=== PATIENT | male | born 1960 | race Caucasian/White ===

== ENCOUNTER 2021-01-29 10:02 | Emergency (ER) | payer OTHER, SELFPAY ==
--- NOTE | 2021-01-29 10:03 | ED.URI ---
HPI - URI/Sore Throat General Chief Complaint: Headache Stated Complaint: purvis/drainage/sore throat/cough Time Seen by Provider: 01/29/21 10:04 Source: patient and RN notes reviewed History of Present Illness HPI Narrative: Patient is 60-year-old male who presents the urgent care with complaints of headache, drainage, mild nonproductive cough and sore throat. Patient states that he has been taking Advil and Zyrtec for his symptoms. States that they started on Friday. Patient reports having Covid 1 a year ago on February 10 and is also had the Materna vaccine. Patient tested negative for Covid at work this morning. Denies of any fever, chills, nausea, vomiting, shortness of breath. No other acute complaints. No acute distress noted. Patient aware of the plan of care. Some parts of this dictation were generated by voice recognition software and may contain typographical and/or grammatical inaccuracies. Related Data Home Medications Medication Instructions Recorded Confirmed amlodipine-benazepril 1 cap PO DAILY 01/29/21 01/29/21 Allergies Allergy/AdvReac Type Severity Reaction Status Date / Time No Known Allergies Allergy Verified 01/29/21 10:15 Review of Systems Review of Systems: CONSTITUTIONAL: Denies fever, chills, or sweats. EYES: Denies visual changes, redness, or discharge. ENT: Reports of sinus congestion, drainage, sore throat CARDIOVASCULAR: Denies chest pain, palpitations, or edema. RESPIRATORY: Reports a mild nonproductive cough without dyspnea GASTROINTESTINAL: Denies abdominal pain, nausea, vomiting, or diarrhea. GENITOURINARY: Denies dysuria or hematuria. SKIN: Denies rash or itching. MUSCULOSKELETAL: Denies back pain, joint pain, or myalgia. NEUROLOGIC: Reports of headache All other systems reviewed are negative, except as documented in HPI. PMFSH Comments At the time of my signature, I reviewed and agree with the nursing past medical, surgical, social, and family history. There is no relevant family history pertinent to the patient complaint. Exam Narrative: GENERAL: This is a well-nourished, well-developed patient, in no apparent distress. HEAD: normocephalic, atraumatic. EYES: PERRL. Sclera clear/white. Vision is grossly intact. EARS: External ears normal, auditory canals clear and without drainage, TMs normal without perforation. Hearing grossly intact. NOSE: External nose normal with no obvious nasal discharge, nares without redness, clear rhinorrhea. THROAT: Mucous membranes moist, moderate erythema noted posterior pharynx with moderate postnasal drainage NECK: Neck supple, non-tender mild bilateral submandibular lymphadenopathy CARDIOVASCULAR: Regular rate and rhythm without murmurs, gallops, or rubs. RESPIRATORY: Clear to auscultation. Breath sounds equal bilaterally. No wheezes, rales, or rhonchi. SKIN: warm, intact with no suspicious lesions or rash, good texture and turgor. NEURO: awake, alert, and oriented to person, place and time. There were no obvious focal neurologic abnormalities. EXTREMITIES: No clubbing, cyanosis, or edema. Course Vital Signs Vital signs: Vital Signs Temperature 98.3 F 01/29/21 10:10 Pulse Rate 115 H 01/29/21 10:10 Respiratory Rate 20 01/29/21 10:10 Blood Pressure 175/92 H 01/29/21 10:10 Pulse Oximetry 98 01/29/21 10:10 Temperature 98.3 F 01/29/21 10:10 Pulse Rate 115 H 01/29/21 10:10 Respiratory Rate 20 01/29/21 10:10 Blood Pressure 175/92 H 01/29/21 10:10 Pulse Oximetry 98 01/29/21 10:10 Reviewed-patient is informed that they may have pre-hypertension or hypertension based on a blood pressure reading in the department. I recommend the patient call the primary care provider listed on their discharge instructions or a physician of their choice this week to arrange follow-up for further evaluation of possible pre-hypertension or hypertension. MDM - URI/Sore Throat MDM Narrative Medical decision making narrative: Reviewed lab
[2021-01-29 10:10] VITALS: BP 175/92; PULSE 115; RESP 20; TEMP 36.8; O2SAT 98
== END 2021-01-29 10:28 | disposition home or self-care (01) ==
PROVIDERS: Emergency Provider Nurse Practitioner Family
DX: J32.9 Chronic sinusitis, unspecified (principal); J02.9 Acute pharyngitis, unspecified; I10 Essential (primary) hypertension; Z86.16 Personal history of COVID-19
CPT/HCPCS: 87081; 87880; 99213; G0463

== ENCOUNTER 2021-02-05 11:04 | Emergency (ER) | payer OTHER, SELFPAY ==
[2021-02-05 11:40] VITALS: BP 167/87; PULSE 73; RESP 16; TEMP 36.5; O2SAT 98
--- NOTE | 2021-02-05 12:21 | ED.URI ---
HPI - URI/Sore Throat General Chief Complaint: Upper Respiratory Infection Stated Complaint: Sore Throat,Chest Congestion,Headache Time Seen by Provider: 02/05/21 12:21 Source: patient Mode of arrival: ambulatory Limitations: no limitations History of Present Illness HPI Narrative: Terry Mg is a 60 yo male with a PMH of hypertension who comes to [facility] with complaints of sore throat, chest congestion and headache. Was here last week with similar symptoms and had strep negative test and was given a Medrol Dosepak, his test earlier this week for Covid which is negative Related Data Home Medications Medication Instructions Recorded Confirmed amlodipine-benazepril 1 cap PO DAILY 01/29/21 01/29/21 Zyrtec 02/05/21 Allergies Allergy/AdvReac Type Severity Reaction Status Date / Time No Known Allergies Allergy Verified 01/29/21 10:15 Review of Systems Review of Systems: CONSTITUTIONAL: Denies fever, chills, sweats. EYES: Denies visual changes, redness, discharge. ENT: Has rhinorrhea, has congestion, has sore throat, otalgia. CARDIOVASCULAR: Denies chest pain, palpitations, edema. RESPIRATORY: Denies dyspnea, wheezing, has cough GASTROINTESTINAL: Denies abdominal pain, nausea, vomiting, diarrhea. GENITOURINARY: Denies dysuria, hematuria, abnormal discharge SKIN: Denies rash or itching. NEUROLOGIC: Denies numbness, or focal weakness. PSYCHIATRIC: Denies anxiety or depression. PMFSH Past Medical History Medical History Hypertension Social History Social History (Updated 02/05/21 @ 12:29 by Georgiana Rockwell CNP) Smoking status: Never smoker Alcohol intake: current Comments At time of signature, I agree with nursing past medical, surgical, social and family history. There is no relevant family history pertinent to the presenting complaint. Exam Narrative: GENERAL: This is a well-nourished, well-developed patient, in mild distress. HEAD: normocephalic, atraumatic. EYES: Sclera clear/white. Vision is grossly intact. EARS: External ears normal, auditory canals clear and without drainage, TMs normal without perforation. Hearing grossly intact. NOSE: External nose normal without nasal discharge, nares without redness, no rhinorrhea. THROAT: Mucous membranes moist, posterior pharynx erythema with mild 1+ edema NECK: Neck supple, non-tender CARDIOVASCULAR: Regular rate and rhythm without murmurs, gallops, or rubs. RESPIRATORY: Clear to auscultation. Breath sounds equal bilaterally. No wheezes, rales, or rhonchi. GASTROINTESTINAL: Abdomen soft, SKIN: warm, intact with no suspicious lesions or rash, good texture and turgor. NEURO: awake, alert, and oriented to person, place and time. There were no obvious focal neurologic abnormalities. Steady gait EXTREMITIES: Normal range of motion. BACK: Nontender without deformity Course Course Emergency Course: [facility] now with 9 days of symptoms that have not improved he was seen here a week ago for sore throat and congestion and was had a negative strep test was also Covid tested last week which is also negative patient has had a full vaccination plus booster for Covid Started on antibiotic, Tessalon Perles, prednisone x5 days with higher doses, and backup of codeine cough syrup for bronchospasm Vital Signs Vital signs: Vital Signs Temperature 97.7 F 02/05/21 11:40 Pulse Rate 73 02/05/21 11:40 Respiratory Rate 16 02/05/21 11:40 Blood Pressure 167/87 H 02/05/21 11:40 Pulse Oximetry 98 02/05/21 11:40 Temperature 97.7 F 02/05/21 11:40 Pulse Rate 73 02/05/21 11:40 Respiratory Rate 16 02/05/21 11:40 Blood Pressure 167/87 H 02/05/21 11:40 Pulse Oximetry 98 02/05/21 11:40 MDM - URI/Sore Throat Differential Diagnosis Differential diagnosis: Likely upper respiratory infection, sinusitis, viral infection, bronchitis, pharyngitis and other Critica
== END 2021-02-05 12:43 | disposition home or self-care (01) ==
PROVIDERS: Emergency Provider Nurse Practitioner
DX: J40 Bronchitis, not specified as acute or chronic (principal); I10 Essential (primary) hypertension
CPT/HCPCS: 99213; G0463

== ENCOUNTER 2022-10-15 18:38 | Observation (INO) | payer OTHER, SELFPAY ==
[2022-10-15] VITALS (7 sets, daily range): BP systolic 120–164; BP diastolic 69–77; PULSE 67–95; RESP 12–26; TEMP 37; O2SAT 96–99
--- NOTE | ~2022-10-15 | US_ITS ---
EXAMINATION: US abdomen limited DATE: 10/17/2022 08:40 INDICATION: Abnormal liver function tests. TECHNIQUE: Multiple grayscale and Doppler ultrasound images of the abdomen were obtained. COMPARISON: None FINDINGS: The visualized portions of the head and body of the pancreas are normal. There is diffuse h epatic steatosis. No liver surface nodularity. There is normal flow in main portal vein. The gallblad layla is normal in size. No gallstones or gallbladder wall thickening. There is no sonographic Somers s ign. The common duct is normal and measures 5 mm. IMPRESSION: 1. Diffuse hepatic steatosis. Reviewed, dictated and finalized at location L.
--- NOTE | ~2022-10-15 | XR_ITS ---
EXAMINATION: XR chest 2V Exam Date/Time: 10/15/2022 21:32 CDT HISTORY: chest pressure, elevated trop Comparison: 05/23/2018. RESULT: Lines, tubes, and devices: None. Lungs and pleura: Low volumes with crowding. Bibasilar scar/atelectasis. Cardiomediastinal silhouette: Stable. Other: No acute osseous or upper abdominal finding. IMPRESSION: No acute cardiopulmonary process. Reviewed, dictated and finalized at location K.
--- NOTE | ~2022-10-15 | CT_ITS ---
EXAMINATION: CT brain wo con DATE: 10/15/2022 19:08 INDICATION: HI, lac to L ear, R periorbital bruising, +ETOH . TECHNIQUE: Computed tomography (CT) of the head was performed without intravenous contrast. The mA wa s adjusted according to patient size. Iterative reconstruction technique was employed. The dose-lengt h product was 605.33 mGy-cm. COMPARISON: None. FINDINGS: No acute intracranial hemorrhage or extra-axial fluid collection. No hydrocephalus, mass, or herniation. No acute ischemic infarct. Unremarkable dural venous sinus attenuation. No acute osseous abnormality. The aerated spaces are clear. IMPRESSION: No acute intracranial process. Reviewed, dictated and finalized at location K.
--- NOTE | ~2022-10-15 | CT_ITS ---
EXAMINATION: CT cervical spine wo con DATE: 10/15/2022 19:14 INDICATION: fall, HI, +ETOH TECHNIQUE: Computed tomography (CT) of the cervical spine was performed without intravenous contrast. Automated exposure control and iterative reconstruction technique were employed. The dose-length pro duct was 325.48 mGy-cm. COMPARISON: None. FINDINGS: Vertebral Body Alignment: Intact. Craniocervical and atlantoaxial alignment: Moderate degenerative change. Alignment intact. Osseous structures/fracture: No evidence of a lytic or blastic process in the visualized spine. No e vidence of acute fracture. Cervical soft tissues: The paraspinal soft tissues planes are maintained. Emphysematous changes. Degenerative changes: Degenerative changes, without severe neural foraminal or central canal narrowin g. IMPRESSION: No acute fracture or traumatic malalignment in the cervical spine. Reviewed, dictated and finalized at location K.
--- NOTE | 2022-10-15 18:44 | ED.FALL ---
HPI - Fall General Chief Complaint: Fall Stated Complaint: fall Source: patient and old records reviewed Mode of arrival: EMS Limitations: clinical condition and intoxication History of Present Illness HPI Narrative: Patient is a 62 y/o male who presents to the ED via EMS with c/o a fall. Per EMS, they were called out for a fall with head injury. Patient reports he has been drinking alcohol today, vodka and beer, and fell, hitting his head against his nightstand. He sustained a laceration to his left ear. He was also noted to have periorbital ecchymosis on his right upper eyelid. Patient does not member the fall or know how it occurred. Unknown if he lost consciousness. He denies any other areas of pain. Denies vision changes. Patient takes aspirin 81 mg daily. Denies other blood thinners. Related Data Home Medications Medication Instructions Recorded Confirmed amlodipine 10 mg-benazepril 20 mg 1 cap PO DAILY 01/29/21 01/29/21 capsule Zyrtec 02/05/21 Allergies Allergy/AdvReac Type Severity Reaction Status Date / Time No Known Allergies Allergy Verified 10/15/22 18:56 Review of Systems Review of Systems: CONSTITUTIONAL: Denies fever, chills, or sweats. EYES: Denies visual changes, redness, or discharge. CARDIOVASCULAR: Denies chest pain, palpitations, or edema. RESPIRATORY: Denies cough or dyspnea. GASTROINTESTINAL: Denies abdominal pain, nausea, vomiting, or diarrhea. GENITOURINARY: Denies dysuria or hematuria. SKIN: See HPI. MUSCULOSKELETAL: Denies back pain, joint pain, or myalgia. NEUROLOGIC: See HPI. ROS unobtainable: Yes unobtainable due to medical condition (limited due to intoxication) [facility] Past Medical History Medical History (Updated 10/16/22 @ 00:13 by Karie Cross PA-C) Alcohol abuse Hypertension Social History Social History Smoking status: Never smoker Alcohol intake: current Exam Narrative: GENERAL: Intoxicated appearing, obese with BMI of 31.9, non-toxic, in no acute distress. HEAD: Normocephalic, atraumatic. EYES: PERRLA/EOMI, conjunctiva clear. Ecchymosis and swelling noted to left upper eyelid. ENT: Vertical linear laceration flap to left upper helix of outer ear, cartilage visible below flap, but wound approximates well and covers the cartilage completely. Minimal active bleeding. TMs clear bilaterally. No TM perforation, hemotympanum. No espinoza sign. NECK: Supple. No adenopathy, no masses. No midline spinal tenderness. RESPIRATORY: Airway patent, respirations nonlabored. Clear to auscultation bilaterally, no rales, rhonchi, wheezing. CARDIOVASCULAR: Regular rate and rhythm without murmurs, rubs, or gallops. Radial pulses 2+ and equal bilaterally. MUSCULOSKELETAL: Moves all extremities. Strength/ROM intact without gross deformities. SKIN: Warm, dry, normal color. No rashes. Scattered abrasions to lower legs. Scattered nontender ecchymosis to abdomen. NEURO: A&O X3. Able to answer all my questions. Follows most commands. Speech somewhat slurred. Cranial nerves II-XII grossly intact. No ataxic movements. Moves all extremities equally. No focal neurologic deficits. PSYCHIATRIC: Appropriate mood and affect. Normal interaction. Course Vital Signs Vital signs: Vital Signs Temperature 98.6 F 10/15/22 18:37 Pulse Rate 95 10/15/22 18:37 Respiratory Rate 14 10/15/22 18:37 Blood Pressure 164/69 H 10/15/22 18:37 Pulse Oximetry 98 10/15/22 18:37 Oxygen Delivery Room Air 10/15/22 18:37 Temperature 98.6 F 10/15/22 18:37 Pulse Rate 67 10/15/22 23:35 Respiratory Rate 14 10/15/22 23:35 Blood Pressure 120/77 10/15/22 23:19 Pulse Oximetry 98 10/15/22 23:35 Oxygen Delivery Room Air 10/15/22 18:37 Procedures Laceration Laceration 1: Date: 10/15/22 Time: 20:40 Site: other (ear) Side (If applicable): left Size (cm): 2
[2022-10-15 18:55] LABS: Basophils Percent Auto 0.7 % (0.2-1.2); Eosinophils Percent Auto 0.2 % (0-4.4); Hemoglobin 13.9 g/dL (14.0-18.0); Immature Granulocyte Absolute 0.02 K/mm3 (0.00-0.031); Immature Granulocyte Percent A 0.3 % (0-0.5); Lymphocytes Absolute Auto 2.19 K/mm3 (0.9-3.2); Lymphocytes Percent Auto 36.1 % (18.3-44.2); Mean Corpuscular HGB Conc 33.9 g/dl (32-36); Mean Corpuscular Hemoglobin 33.3 pg (26-34); Mean Corpuscular Volume 98.3 fl (80-100); Mean Platelet Volume 9.2 fl (7.4-10.4); Monocytes Absolute Auto 0.7 K/mm3 (0.1-0.6); Monocytes Percent Auto 11.5 % (2.6-8.5); Neutrophils Absolute Auto 3.1 K/mm3 (1.3-6.7); Neutrophils Percent Auto 51.2 % (45.5-73.1); Platelet Count Result 135 k/mm3 (150-375); Red Blood Count 4.17 M/mm3 (4.6-6.20); Red Cell Distribution Width 14.6 % (11.5-14.5); White Blood Count 6.1 K/mm3 (4.5-10.0)
--- NOTE | 2022-10-15 19:05 | PC.NURSE ---
This RN assumed care of patient. this RN took patient report from JOCELYNE Allison and JOCELYNE Luo.
[2022-10-15 19:07] LABS: Alanine Aminotransferase 83 U/L (6-50); Albumin Level 4.4 g/dL (3.5-5.1); Alkaline Phosphatase 62 U/L (38-126); Anion Gap 13 mmol/L (8-16); Aspartate Amino Transferase 109 U/L (17-59); Bilirubin,Total 0.5 mg/dL (0.2-1.3); Blood Urea Nitrogen 16 mg/dL (9-20); Calcium 8.6 mg/dL (8.4-10.2); Carbon Dioxide 22 mmol/L (22-30); Chloride 105 mmol/L (98-107); Estimated CRCL calculation 78 ml/min; Estimated Glomerular Filt Rate > 60; Glucose 92 mg/dL (65-110); Potassium 4.1 mmol/L (3.4-5.0); Sodium 140 mmol/L (137-145)
[2022-10-15 19:16] LABS: Ethanol 470 mg/dL (<10)
[2022-10-15 19:51] LABS: Amphetamine Screen Urine Negative (Negative); Barbiturate Screen Urine Negative (Negative); Benzodiazepines Screen Urine Negative (Negative); Cannabinoid Screen Urine Negative (Negative); Cocaine Screen Urine Negative (Negative); Methadone Screen Urine Negative (Negative); Opiate Screen Urine Negative (Negative); Phencyclidine Screen Urine Negative (Negative)
[2022-10-15 19:53] LABS: Appearance Urine Clear (Clear); Bilirubin Urine Negative (Negative); Blood Urine Negative (Negative); Color Urine Yellow (Yellow); Glucose Urine UA Negative (Negative); Ketones Urine Negative (Negative); Leukocyte Esterase Ur Negative LEU/UL (Negative); Nitrate Urine Negative (Negative); Protein Urine Negative (Negative); Specific Grav Ur 1.007 (1.001-1.035); Urobilinogen Urine 0.2 mg/dL (<2.0); pH Urine 5.5 (5.0-9.0)
[2022-10-15 19:56] LABS: Add Urine Microscopic? NO
--- NOTE | 2022-10-15 20:24 | ECG_ITS ---
Measurements Intervals [place] Rate: 62 P: NC: 0 QRS: 7 QRSD: 96 T: 59 QT: 438 QTc: 446 Interpretive Statements SINUS RHYTHM MODERATE T-WAVE ABNORMALITY, CONSIDER ANTERIOR ISCHEMIA [-0.1+ mV T WAVE IN V3/V4] ABNORMAL ECG COMPARED TO ECG 05/23/2018 12:45:54 NO SIGNIFICANT CHANGES Electronically Signed On 10-16-2022 7:46:31 CDT by Daquan Drummond M.D.
--- NOTE | 2022-10-15 20:55 | PC.NURSE ---
EKG delayed due to EDP Karie preforming laceration repair.
[2022-10-15 21:03] LABS: Troponin I 0.042 ng/mL (0.000-0.034)
[2022-10-15] MEDS: ASPIRIN 81 MG CHEWABLE TABLET 324 MG PO (21:22)
--- NOTE | 2022-10-15 21:23 | PC.NURSE ---
EDP Karie verbal order back to give pt 243mg of aspirin due to pt taking 1 aspirin prior to arrival at the ED.
--- NOTE | 2022-10-15 22:10 | PC.NURSE ---
Called [facility] @[id number] to check bed availability status. No beds available at this time.
[2022-10-15 22:29] LABS: Troponin I 0.052 ng/mL (0.000-0.034)
[2022-10-15] MEDS: LORazepam INJ (*CRX) 2 MG/ML VIAL 0.5 MG IV PUSH (23:35)
--- NOTE | 2022-10-15 23:46 | PM.IMHP ---
H&P: HPI History of Present Illness Date/Time: 10/15/22 23:46 Chief Complaint: Fall Narrative: 62-year-old male with past medical history of chronic alcohol abuse and essential hypertension who presented to the ER after having a fall while intoxicated. The patient reports that his family is out of town in [place]. He chose not to go out of town with them as he wanted to stay in town for work. While his family was out of town he has been drinking more alcohol than usual. Although it does sound like he has had a history of longstanding alcoholism and alcohol abuse. He drinks a pt of vodka yesterday. He then went to get up at some point and fell. The exact details surrounding the fall are unclear. The patient tells me that he got up to go to the kitchen and passed out and did not answer his phone so his called EMS. However EMS found patient in his bedroom by his night stand any had blood on his person. He tried to refuse transport to the ER but EMS would not allow it. The patient was found to have a laceration to his left ear and ecchymosis around his right eye. His alcohol level in the ER was 470. Given that they did not know the circumstances surrounding his fall ER but did obtain a troponin. The patient's troponin came back elevated. On further questioning the patient did admit that he has been having some chest tightness. He reports that this past week while at work he was in a meeting and became acutely diaphoretic and tremulous and felt as if his heart was racing. He attributed this to the recent increase in his sertraline. He states that when he was on the 50 mg of sertraline he was okay. However when the dose was increased to 100 mg he felt as if his heart was beating irregularly. He reports also reported that he just felt off. He does report that he has been dizzy for the last 1 day but he attributed that to drinking too much alcohol. He states that he was started on sertraline to help him get off the alcohol. However he also does admit to being significantly depressed. He reports that when he is at work he has writing a high all the time. But when he goes home he is flat in has no interest in life. He denies any suicidal ideation or intent to hurt himself. Patient's initial EKG in the ER demonstrated T-wave inversions in V1 through V4. He denied any chest pain in the ER but at the time of my evaluation he reported that he was having a recurrence of his chest tightness. He denies any radiation of his chest pain. His his pain was relieved with nitro in IMU. He admits that he has been having intermittent episodes of the chest tightness at least once a day for the last week or so. The pain usually last about 10 minutes and then resolves. He has not noticed any eliciting or relieving factors. However he has had more episodes of the chest tightness over the last 24 hours. He has been having issues with drinking heavily and binge drinking for many years. He quit smoking 18 years ago. He denies any illicit substance use. Patient denies any symptoms of heartburn. He has been having some episodes of palpitations and heart racing with antidepressants. He reports he had his last stress test many years ago and his stress test was negative. He receives all of his care at the [facility] but they did not have any beds and has subsequently been admitted here for observation. Review of Systems Review of Systems: 12 systems were reviewed with pertinent positives and negatives per HPI. Except as documented in the HPI, all other systems were reviewed and are negative. [facility] Past Medical History Medical History (Updated 10/16/22 @ 06:31 by Zara Buitrago DO) Alcohol abuse Allergic rhinitis Depression Hypertension Surgical History Surgical History (Updated 10/16/22 @ 06:10 by Zara Buitrago DO) History of repair of ACL Right History of toe surgery Joint removal from the left great toe Family History Famil
[2022-10-16] VITALS (11 sets, daily range): BP systolic 133–150; BP diastolic 73–91; PULSE 71–137; RESP 18–20; TEMP 36.4–37.3; O2SAT 94–99; BMI 29.9
--- NOTE | 2022-10-16 00:15 | ADMGEN ---
This patient, Terry Mg, was admitted to IMU Room 204-01. Patient/family oriented to hospital policies and general routines including ID bracelet, bed and alarms, visiting hours, pain management, procedures, bathroom and other care routines, personal items, smoking policy, room service/diet, and visiting hours. Information on how to activate the Rapid Response Team has been discussed. Patient/Family are encouraged to report perceived risks to care and to ask questions if they do not understand what they are told or what they should do.
[2022-10-16] MEDS: NITROGLYCERIN SL 0.4 MG TABLET SUBLINGUAL (00:43)
--- NOTE | 2022-10-16 00:52 | ECG_ITS ---
Measurements Intervals [place] Rate: 71 P: 41 NE: 151 QRS: -5 QRSD: 100 T: 10 QT: 434 QTc: 474 Interpretive Statements SINUS RHYTHM CONSIDER PREVIOUS iNFERIOR MYOCARDIAL INFARCTION MODERATE T-WAVE ABNORMALITY, CONSIDER ANTEROLATERAL ISCHEMIA [-0.1+ mV T WAVE IN V3-V6] ABNORMAL ECG WARNING: DATA QUALITY MAY AFFECT INTERPRETATION COMPARED TO ECG 10/15/2022 21:07:00 NO SIGNIFICANT CHANGE, SLIGHTLY DIFFERENT LEAD POSITION AVF Electronically Signed On 10-16-2022 7:50:14 CDT by Daquan Drummond M.D.
[2022-10-16 01:03] LABS: Troponin I 0.061 ng/mL (0.000-0.034)
[2022-10-16 06:50] LABS: Hematocrit 38.5 % (42.0-52.0); Hemoglobin 13.3 g/dL (14.0-18.0); Mean Corpuscular HGB Conc 34.5 g/dl (32-36); Mean Corpuscular Hemoglobin 33.7 pg (26-34); Mean Corpuscular Volume 97.5 fl (80-100); Mean Platelet Volume 9.3 fl (7.4-10.4); Platelet Count Result 117 k/mm3 (150-375); Red Blood Count 3.95 M/mm3 (4.6-6.20); Red Cell Distribution Width 14.4 % (11.5-14.5); White Blood Count 4.3 K/mm3 (4.5-10.0)
[2022-10-16 07:01] LABS: Ethanol 164 mg/dL (<10)
[2022-10-16 07:11] LABS: LDL Cholesterol Direct 95 mg/dL
[2022-10-16 07:14] LABS: Alanine Aminotransferase 75 U/L (6-50); Alkaline Phosphatase 55 U/L (38-126); Anion Gap 8 mmol/L (8-16); Aspartate Amino Transferase 83 U/L (17-59); Bilirubin,Total 0.7 mg/dL (0.2-1.3); Blood Urea Nitrogen 13 mg/dL (9-20); Calcium 8.4 mg/dL (8.4-10.2); Carbon Dioxide 23 mmol/L (22-30); Chloride 107 mmol/L (98-107); Cholesterol 256 mg/dL (0-200); Estimated CRCL calculation 91 ml/min; Estimated Glomerular Filt Rate > 60; Glucose 85 mg/dL (65-110); Magnesium 1.9 mg/dL (1.6-2.3); Phosphorus 2.8 mg/dL (2.5-4.5); Potassium 4.1 mmol/L (3.4-5.0); Sodium 138 mmol/L (137-145); Triglycerides 63 mg/dL (<150)
[2022-10-16 07:15] LABS: Troponin I 0.059 ng/mL (0.000-0.034)
[2022-10-16 07:50] LABS: Hepatitis B Surface Antigen Negative (Negative)
[2022-10-16 07:56] LABS: HAV RESULT Negative (Negative); Hepatitis B Core IgM Result Negative (Negative)
[2022-10-16 08:07] LABS: Hepatitis C Virus Antibody Negative (Negative)
[2022-10-16 08:33] LABS: HDL Direct 132 mg/dL
--- NOTE | 2022-10-16 09:54 | PM.CNCAR ---
Assessment and Plan Assessment and plan (1) Elevated troponin: Code(s): R77.8 - Other specified abnormalities of plasma proteins Status: Acute (2) Alcohol abuse with intoxication: Code(s): F10.129 - Alcohol abuse with intoxication, unspecified Status: Acute Plan This is a 62-year-old man with an unfortunate history of chronic alcohol abuse who came into the hospital after falling in the state of severe intoxication sustaining the injuries that are described in the admitting note. For reasons that are not clear to me troponin levels were done are slightly elevated and he also has some precordial T-wave abnormalities on his ECG. His electrocardiogram is not changed in comparison to previous tracings in the chart in his troponin levels are not consistent with an acute coronary syndrome. At this point I do not believe further cardiac workup is necessary or indicated at this time. He will continue to follow up after discharge with his physicians at the [facility]. We have any questions regarding this opinion please let me know. Daquan Drummond MD [facility] History of Present Illness History of Present Illness Consult date/time: 10/16/22 09:54 Reason For Visit: ETOH Abuse/Intoxication/GLF/Head Injury/Positive T Narrative: This is a 62-year-old man I am seeing today at the request of the hospitalist because of chest pain and modestly elevated troponin. Patient is unknown to me prior to this consultation. He read generally [facility] and was admitted yesterday evening to this hospital after falling in the state of his alcohol intoxication and incurring some head trauma he has a laceration about his left ear and some periorbital contusion and was seen in the emergency room and then admitted to the hospital. The patient had a very high alcohol level of 470 on arrival to the hospital. His electrocardiogram shows sinus rhythm with nonspecific precordial T-wave inversions which are not changed in comparison to previous tracings that are in the record. For reasons that are not clear to me troponin levels were also sampled and were modestly abnormal. The levels are 005 and flat. He states he is not known to have any heart disease in the past has been referred to a server security administrator a couple of times at [facility] because of abnormalities on his ECG he describes having had an echocardiogram there within the last year and couple of stress tests in the past that were unremarkable. He is not having any exertional symptoms when he is not intoxicated and offers no other complaints. Unfortunately he has a long history of alcohol abuse which T states started when he was in the [place] as a teenager. He drinks beer and vodka to excess. 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 Review of Systems Constitutional: Constitutional: Reports no additional constitutional complaints Eyes: Eyes: Reports no additional eye complaints ENT: Reports system reviewed and no additional complaints, except as documented Cardiovascular: Cardiovascular: Reports as per HPI Respiratory: Respiratory: Reports no additional respiratory complaints Gastrointestinal: Gastrointestinal: Reports no additional gastrointestinal complaints Musculoskeletal: Musculoskeletal: Reports no additional musculoskeletal complaints Integumentary/Breasts: Skin/Breast: Reports system reviewed and no additional complaints, except as docu Neurologic: Reports as per HPI Endocrine: Endocrine: Reports no additional endocrine complaints Hematologic/Lymphatic: Hematologic/Lymphatic: Reports no additional hematologic/lymphatic complaints Allergic/Immunologic: Allergic/Immunologic: Reports no additional allergic/immunologic complaints [facility] Past Medical History Medical History (Updated 10/16/22 @ 06:31 by Zara Buitrago DO) Alcohol abuse Allergic rhinitis Depression Hypert
[2022-10-16] MEDS: amLODIPine BESYLATE 5 MG TABLET 10 MG PO (09:59)
[2022-10-16] MEDS: ASPIRIN 81 MG CHEWABLE TABLET PO (09:59)
[2022-10-16] MEDS: lisinopriL 20 MG TABLET PO (10:00)
[2022-10-16] MEDS: LORATADINE 10 MG TABLET PO (10:01)
--- NOTE | 2022-10-16 15:37 | PM.IMPN ---
Progress Note: A&P Assessment and Plan (1) Alcohol abuse with intoxication: Code(s): F10.129 - Alcohol abuse with intoxication, unspecified Status: Acute Assessment and Plan: The patient is acutely intoxicated with alcohol. It sounds as if he has history of episodes of binge drinking and alcohol abuse for many years. He has been trying to cut back. He does have a tremor at rest which is chronic for him. Will check B12 and folic acid levels. Will also check magnesium and phosphorus levels. Will monitor CIWA scores and will add Ativan as needed for CIWA score greater than 8. Repeat alcohol was 164. Care coordination consulted for alcohol abuse and counseling resources. Patient feeling down about his situation but denies any suicidal homicidal ideations (2) Elevated troponin: Code(s): R77.8 - Other specified abnormalities of plasma proteins Status: Acute Assessment and Plan: troponin slightly elevated but remained flat and now trending down. Cardiology cleared patient. (3) Chest pressure: Code(s): R07.89 - Other chest pain Status: Resolved Assessment and Plan: Resolved (4) Ground-level fall: Code(s): W18.30XA - Fall on same level, unspecified, initial encounter Status: Acute Assessment and Plan: Patient has been placed on fall precautions. (5) Laceration of ear, external, left: Qualifiers: Encounter type: initial encounter Qualified Code(s): S01.312A - Laceration without foreign body of left ear, initial encounter Code(s): S01.312A - Laceration without foreign body of left ear, initial encounter Status: Acute Assessment and Plan: The patient has laceration repair in the ER. Adequate hemostasis. Continue to monitor. (6) Transaminitis: Code(s): R74.01 - Elevation of levels of liver transaminase levels Status: Acute Assessment and Plan: Patient does have transaminitis likely secondary to heavy alcohol use. hepatitis panel negative. (7) Depression: Qualifiers: Depression Type: unspecified Qualified Code(s): F32.A - Depression, unspecified Code(s): F32.A - Depression, unspecified Status: Acute Assessment and Plan: The patient is reporting symptoms of depression. He also describes some symptoms could be consistent with manic episodes. I suspect the patient is self medicating with alcohol. Care coordination consulted for outpatient resources. Subjective Date/time seen: 10/16/22 15:37 Interval history: Patient up to the bed with daughter sitting at bedside. Patient states that he is feeling okay and is a little bit sore from the fall but otherwise feels good. He is in much better spirits after he was cleared by the mailing machine helper. There was concern that patient possibly needs psychiatric evaluation here in the hospital but I believe that patient will more benefit from drug and alcohol counseling and resources as well as outpatient evaluation for depression. Patient does not present with any immediate inpatient psychiatric needs such as renetta or psychosis. Review of Systems Review of Systems: All systems reviewed & are unremarkable except as noted in HPI and below Exam Narrative: GENERAL: Comfortable, no acute distress HENMT: moist mucous membranes, laceration to the left ear, right eye ecchymosis EYES: EOM intact b/l NECK: no lymphadenopathy RESPIRATORY: clear to auscultation CARDIO: RRR GI: soft, nontender, bowel sounds present SKIN: no rashes EXTREMITIES: no edema, redness or tenderness Objective Data Vital Signs Vital Signs: Vital Signs - 24 hr 10/15/22 18:37 10/15/22 19:37 10/15/22 20:00 Temperature 98.6 F Pulse Rate 95 75 69 Respiratory Rate 14 16 16 Blood Pressure 164/69 H Pulse Oximetry 98 98 96 Oxygen Delivery Room Air 10/15/22 21:17 10/15/22 22:25 10/15/22 23:19 Temperature Pulse R
[2022-10-17] VITALS: PULSE 79
[2022-10-17 04:00] VITALS: PULSE 88
[2022-10-17 06:04] LABS: Basophils Percent Auto 0.7 % (0.2-1.2); Eosinophils Percent Auto 0.9 % (0-4.4); Hematocrit 38.8 % (42.0-52.0); Hemoglobin 13.1 g/dL (14.0-18.0); Immature Granulocyte Absolute 0.02 K/mm3 (0.00-0.031); Immature Granulocyte Percent A 0.4 % (0-0.5); Immature Platelet Fraction Pct 4.9 % (0.9-11.2); Lymphocytes Absolute Auto 1.45 K/mm3 (0.9-3.2); Lymphocytes Percent Auto 32.2 % (18.3-44.2); Mean Corpuscular HGB Conc 33.8 g/dl (32-36); Mean Corpuscular Hemoglobin 33.1 pg (26-34); Mean Platelet Volume 10.6 fl (7.4-10.4); Monocytes Absolute Auto 0.6 K/mm3 (0.1-0.6); Monocytes Percent Auto 13.7 % (2.6-8.5); Neutrophils Absolute Auto 2.4 K/mm3 (1.3-6.7); Neutrophils Percent Auto 52.1 % (45.5-73.1); Platelet Count Result 126 k/mm3 (150-375); Red Blood Count 3.96 M/mm3 (4.6-6.20); Red Cell Distribution Width 14.3 % (11.5-14.5); White Blood Count 4.5 K/mm3 (4.5-10.0)
[2022-10-17 06:14] LABS: Alanine Aminotransferase 71 U/L (6-50); Albumin Level 4.1 g/dL (3.5-5.1); Alkaline Phosphatase 60 U/L (38-126); Anion Gap 6 mmol/L (8-16); Aspartate Amino Transferase 62 U/L (17-59); Bilirubin,Total 1.6 mg/dL (0.2-1.3); Blood Urea Nitrogen 17 mg/dL (9-20); Calcium 8.7 mg/dL (8.4-10.2); Carbon Dioxide 28 mmol/L (22-30); Chloride 100 mmol/L (98-107); Estimated CRCL calculation 91 ml/min; Estimated Glomerular Filt Rate > 60; Glucose 98 mg/dL (65-110); Magnesium 1.8 mg/dL (1.6-2.3); Potassium 3.7 mmol/L (3.4-5.0); Sodium 134 mmol/L (137-145)
[2022-10-17 08:00] VITALS: BP 117/65; PULSE 87; RESP 18; TEMP 36.7; O2SAT 97
[2022-10-17] MEDS: ASPIRIN 81 MG CHEWABLE TABLET PO (08:58)
[2022-10-17] MEDS: LORATADINE 10 MG TABLET PO (08:58)
[2022-10-17] MEDS: hydroCHLOROthiazide 12.5 MG CAPSULE PO (08:58)
[2022-10-17] MEDS: lisinopriL 20 MG TABLET PO (08:58)
[2022-10-17] MEDS: SERTRALINE HCL 50 MG TABLET 100 MG PO (09:20)
[2022-10-17] MEDS: amLODIPine BESYLATE 5 MG TABLET 10 MG PO (09:22)
[2022-10-17] MEDS: METOPROLOL SUCCINATE EXT REL 12.5 MG TABCR PO (11:41)
--- NOTE | 2022-10-17 13:13 | PM.DS ---
DS: Admitting Diagnosis Discharge Date 10/17/22 Admitting Diagnosis Intoxication, fall, elevated troponins DS: Discharge Diagnosis Discharge Diagnosis (1) Alcohol abuse with intoxication: Code(s): F10.129 - Alcohol abuse with intoxication, unspecified Status: Acute Assessment and Plan: The patient is acutely intoxicated with alcohol. It sounds as if he has history of episodes of binge drinking and alcohol abuse for many years. He has been trying to cut back. He does have a tremor at rest which is chronic for him. Will check B12 and folic acid levels. Will also check magnesium and phosphorus levels. Will monitor CIWA scores and will add Ativan as needed for CIWA score greater than 8. Repeat alcohol was 164. Care coordination consulted for alcohol abuse and counseling resources. Patient feeling down about his situation but denies any suicidal homicidal ideations (2) Elevated troponin: Code(s): R77.8 - Other specified abnormalities of plasma proteins Status: Acute Assessment and Plan: troponin slightly elevated but remained flat and now trending down. Cardiology cleared patient. (3) Chest pressure: Code(s): R07.89 - Other chest pain Status: Resolved Assessment and Plan: Resolved (4) Ground-level fall: Code(s): W18.30XA - Fall on same level, unspecified, initial encounter Status: Acute Assessment and Plan: Patient has been placed on fall precautions. (5) Laceration of ear, external, left: Qualifiers: Encounter type: initial encounter Qualified Code(s): S01.312A - Laceration without foreign body of left ear, initial encounter Code(s): S01.312A - Laceration without foreign body of left ear, initial encounter Status: Acute Assessment and Plan: The patient has laceration repair in the ER. Adequate hemostasis. Continue to monitor. (6) Transaminitis: Code(s): R74.01 - Elevation of levels of liver transaminase levels Status: Acute Assessment and Plan: Patient does have transaminitis likely secondary to heavy alcohol use. hepatitis panel negative. (7) Depression: Qualifiers: Depression Type: unspecified Qualified Code(s): F32.A - Depression, unspecified Code(s): F32.A - Depression, unspecified Status: Acute Assessment and Plan: The patient is reporting symptoms of depression. He also describes some symptoms could be consistent with manic episodes. I suspect the patient is self medicating with alcohol. Care coordination consulted for outpatient resources. DS: Summary Hospital Course Hospital Course: This is a 62-year-old male with past medical history of chronic alcohol abuse and essential hypertension that presents to the ER on 10/15/2022 due to a fall while intoxicated. Patient's family was out of town and when they could not get hold of him they called EMS and they found him on the ground by his night stand with blood on him. Patient presents to the ER with an alcohol level of 470. patient could not remember the events that led up to his fall. Patient's troponin came back elevated . EKG in the ED does demonstrate T-wave changes concerning for possible ischemia.? Repeat EKG did demonstrate progression of T-wave changes in to leads 5 through 6 in addition to prior leads 1 through 4. Troponin trended and Cardiology consulted. Troponin remained flat and eventually trended down. patient did have very mild chest pain and some dizziness but this eventually resolved with nitro. Cardiology discharge patient from their service. CIWA protocol initiated as well as fall precautions. Patient was started on normal saline. patient was interested in resources for his alcoholism. Care coordination consulted and Resources were given to the patient. Patient did have mildly elevated LFTs and hepatic panel was negative. right upper quadrant ultrasound performe
[2022-10-17 14:15] VITALS: BP 141/84; PULSE 95; RESP 20; TEMP 36.8; O2SAT 95
== END 2022-10-17 15:04 | disposition home or self-care (01) ==
LOC: ANHED 22:35 → ANHIMU 10-16 12:41 → ANH2MED 10-17 08:32 → ANHIMU 10-18 07:44
PROVIDERS: Internal Medicine Critical Care Medicine; Admitting Provider Internal Medicine; Emergency Provider Physician Assistant; Visit Provider Family Medicine
DX: F10.129 Alcohol abuse with intoxication, unspecified (principal); Y90.8 Blood alcohol level of 240 mg/100 ml or more; R77.8 Other specified abnormalities of plasma proteins; R07.89 Other chest pain; S01.312A Laceration without foreign body of left ear, initial encounter; W18.30XA Fall on same level, unspecified, initial encounter; R74.01 Elevation of levels of liver transaminase levels; F32.A Depression, unspecified; R94.31 Abnormal electrocardiogram [ECG] [EKG]; I10 Essential (primary) hypertension; K76.0 Fatty (change of) liver, not elsewhere classified; Z79.82 Long term (current) use of aspirin; Z79.899 Other long term (current) drug therapy
CPT/HCPCS: 12011; 36415; 70450; 71046; 72125; 76705; 80053; 80061; 80074; 80307; 81003; 82607; 82746; 83735; 84100; 84443; 84484; 85025; 85027; 85055; 93005; 96374; 99285; A9270; G0378; J2060

== ENCOUNTER 2023-08-03 15:19 | Emergency (ER) | payer OTHER, SELFPAY ==
[2023-08-03] VITALS (8 sets, daily range): BP systolic 115–136; BP diastolic 61–82; PULSE 60–123; RESP 13–24; TEMP 37.1; O2SAT 96–100
--- NOTE | ~2023-08-03 | XR_ITS ---
EXAMINATION: XR chest 2V Exam Date/Time: 08/03/2023 15:50 CDT HISTORY: chest pain Comparison: 10/15/2022. RESULT: Lines, tubes, and devices: None. Lungs and pleura: Linear bibasilar scar/atelectasis. Subsegmental right posterior basal opacity with right posterior costophrenic angle blunting. Cardiomediastinal silhouette: Stable. Other: No acute osseous or upper abdominal finding. IMPRESSION: Subsegmental right posterior basilar atelectasis/consolidation. Possible small right pleural effusion . Reviewed, dictated and finalized at location K. IMPRESSION: Subsegmental right posterior basilar atelectasis/consolidation. Possible small right pleural effusion.
--- NOTE | 2023-08-03 15:25 | ECG_ITS ---
SEE SCANNED COPY FOR CONFIRMED REPORT. MTDD
[2023-08-03 15:35] LABS: Basophils Percent Auto 0.5 % (0.2-1.2); Eosinophils Absolute Auto 0.1 K/mm3 (0-0.3); Eosinophils Percent Auto 2.2 % (0-4.4); Hematocrit 42.8 % (42.0-52.0); Hemoglobin 14.7 g/dL (14.0-18.0); Immature Granulocyte Absolute 0.01 K/mm3 (0.00-0.031); Immature Granulocyte Percent A 0.2 % (0-0.5); Immature Platelet Fraction Pct 4.6 % (0.9-11.2); Lymphocytes Absolute Auto 1.72 K/mm3 (0.9-3.2); Lymphocytes Percent Auto 27.4 % (18.3-44.2); Mean Corpuscular HGB Conc 34.3 g/dl (32-36); Mean Corpuscular Hemoglobin 29.8 pg (26-34); Mean Corpuscular Volume 86.8 fl (80-100); Mean Platelet Volume 10.7 fl (7.4-10.4); Monocytes Absolute Auto 0.5 K/mm3 (0.1-0.6); Neutrophils Absolute Auto 3.9 K/mm3 (1.3-6.7); Neutrophils Percent Auto 61.7 % (45.5-73.1); Platelet Count Result 110 k/mm3 (150-375); Red Blood Count 4.93 M/mm3 (4.6-6.20); White Blood Count 6.3 K/mm3 (4.5-10.0)
--- NOTE | 2023-08-03 15:40 | PC.NURSE ---
Patient visualized by myself and 2 police officers leaning forward in locked wheelchair with vinod bag causing self to fall towards ground. This RN called to patient to tell them to sit back. Patient then stretched arms downwards to assist in further removing self from wheelchair and onto the ground. Patient braced self from hitting head or face on floor. Patient immediately helped by this RN and personal security specialist up to wheelchair. Tiffany, deck engineer, made aware and patient taken to ED RM 5.
[2023-08-03 15:43] LABS: Prothrombin Time 13.9 Seconds (11.1-14.7)
[2023-08-03 15:44] LABS: Partial Thromboplastin Time 28.9 Seconds (22.3-36.8)
[2023-08-03 15:45] LABS: Alanine Aminotransferase 19 U/L (6-50); Albumin Level 4.5 g/dL (3.5-5.1); Alkaline Phosphatase 63 U/L (38-126); Anion Gap 16 mmol/L (4-12); Aspartate Amino Transferase 38 U/L (17-59); Bilirubin,Total 1.2 mg/dL (0.2-1.3); Blood Urea Nitrogen 16 mg/dL (9-20); Calcium 8.9 mg/dL (8.4-10.2); Carbon Dioxide 17 mmol/L (22-30); Chloride 103 mmol/L (98-107); Estimated CRCL calculation 73 ml/min; Estimated Glomerular Filt Rate > 60; Glucose 142 mg/dL (65-110); Lipase 211 U/L (23-300); Potassium 3.4 mmol/L (3.4-5.0); Sodium 136 mmol/L (137-145)
[2023-08-03 15:57] LABS: Troponin I 0.014 ng/mL (0.000-0.034)
[2023-08-03] MEDS: SODIUM CHLORIDE 0.9% IV 1,000 ML 999 ML IV CONT (16:06)
[2023-08-03] MEDS: ASPIRIN 81 MG CHEWABLE TABLET 324 MG PO (16:07)
[2023-08-03 16:29] LABS: Ethanol 203 mg/dL (<10)
--- NOTE | 2023-08-03 17:15 | ED.GENADULT ---
HPI - General Adult General Chief complaint: Chest Pain Stated complaint: chest pain Time Seen by Provider: 08/03/23 15:49 History of Present Illness HPI narrative: Patient is a 63-year-old male who reports he is having chest pain for 2 days. Left-sided and moves into his arm. No exertional component. Cannot describe aggravating or alleviating factors. Patient went to [employer] after having a beer and a couple shots of etoh today, and the police showed up to arrest him and that is when he notified them of his chest pain and need to be seen in the ER. Patient reports he is having some alcohol withdrawal as yesterday and he is supposed to go to [facility] for alcohol detox tomorrow. No history of coronary disease. Related Data Home Medications Medication Instructions Recorded Confirmed amlodipine 10 mg-benazepril 20 mg 1 cap PO DAILY 01/29/21 10/16/22 capsule aspirin 81 mg tablet 81 mg PO DAILY 10/16/22 10/16/22 cetirizine 10 mg tablet (Zyrtec) 10 mg PO DAILY 10/16/22 10/16/22 Allergies Allergy/AdvReac Type Severity Reaction Status Date / Time No Known Allergies Allergy Verified 08/03/23 15:48 Review of Systems Review of Systems: All systems reviewed & are unremarkable except as noted in HPI and below Constitutional: Constitutional: Reports no additional constitutional complaints ENT: Reports system reviewed and no additional complaints, except as documented Cardiovascular: Cardiovascular: Reports chest pain, Denies rapid heart rate, Reports radiating jaw, neck or arm pain and Denies slow heart rate Respiratory: Respiratory: Reports no additional respiratory complaints Gastrointestinal: Gastrointestinal: Reports no additional gastrointestinal complaints Musculoskeletal: Musculoskeletal: Reports no additional musculoskeletal complaints [facility] Past Medical History Medical History (Updated 08/03/23 @ 18:43 by Art Hay MD) Alcohol abuse Allergic rhinitis Depression Hypertension Surgical History Surgical History (Updated 10/16/22 @ 06:10 by Zara Buitrago DO) History of repair of ACL Right History of toe surgery Joint removal from the left great toe Family History Family History (Updated 10/16/22 @ 06:11 by Zara Buitrago DO) Father Acute myocardial infarction, Onset Age: 55 Mother , Age 70 Emphysema of lung Sibling HIV (human immunodeficiency virus infection) Sibling Emphysema of lung Social History Social History (Updated 10/16/22 @ 06:15 by Zara Buitrago DO) Social History: He has 2 daughters and 1 son. Code status: Full code Surrogate decision maker: Smoking packs per day: 1.5 Smoking cigarettes per day: 30.0 Years smoked: 52 Smoking pack-years: 78.00 Smoking status: Former smoker Alcohol intake: current Alcohol use details: Patient binge drinks. Alcohol level on admission 470 (10/15/2022) Substance use: never Additional living arrangements comments: He lives with his of 28 years. Additional occupation/education comments: He served in the [employer] for 8 years. 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 Spiritual care concerns: No Exam Narrative: GENERAL: Well-appearing, well-nourished, and in no acute distress. HEAD: Normocephalic, atraumatic. ENT: Mucous membranes moist. NECK: Supple. CHEST: Clear to auscultation. No respiratory distress. HEART: tachycardic and regular. Normal peripheral pulses. ABDOMEN: Soft, nontender, nondistended. EXTREMITIES: Normal range of motion. No edema. SKIN: Warm, dry, no rash. NEURO: Alert and oriented x3. PSYCH: Normal mood and affect. Course Course Emergency Course: Discussed admission for observation with the patient given the fact that he has some ST depression with chest pain. Patient is refusing admission would like to leave against medical advice despite knowing the could be risking , disability, or missed diagnosis. Fatemeh
[2023-08-03 19:02] LABS: Troponin I 0.015 ng/mL (0.000-0.034)
== END 2023-08-03 18:41 | disposition left against medical advice (07) ==
PROVIDERS: Emergency Provider Emergency Medicine
DX: R07.9 Chest pain, unspecified (principal); F10.120 Alcohol abuse with intoxication, uncomplicated; Y90.7 Blood alcohol level of 200-239 mg/100 ml; R00.0 Tachycardia, unspecified; F32.A Depression, unspecified; I10 Essential (primary) hypertension
CPT/HCPCS: 36415; 71046; 80053; 80307; 83690; 84484; 85025; 85055; 85610; 85730; 93005; 96360; 99284; A9270; J7030

== ENCOUNTER 2023-09-25 18:56 | Emergency (ER) | payer OTHER, SELFPAY ==
[2023-09-25] VITALS (14 sets, daily range): BP systolic 77–129; BP diastolic 48–88; PULSE 65–91; RESP 12–20; TEMP 36.6; O2SAT 91–97
--- NOTE | ~2023-09-25 | XR_ITS ---
EXAMINATION: XR knee LT 3V DATE: 09/25/2023 20:07 INDICATION: Left knee injury. TECHNIQUE: 3 views of left knee were obtained. COMPARISON: None. FINDINGS: Bone alignment is normal. No fracture. There is mild tricompartmental osteoarthritis. There is a large knee joint effusion. IMPRESSION: 1. Mild left knee osteoarthritis. 2. Large left knee joint effusion. Reviewed, dictated and finalized at location E.
--- NOTE | ~2023-09-25 | CT_ITS ---
EXAMINATION: CT brain wo con DATE: 09/25/2023 19:59 INDICATION: Head injury. TECHNIQUE: Computed tomography (CT) of the head was performed without intravenous contrast. The mA wa s adjusted according to patient size. Iterative reconstruction technique was employed. The dose-lengt h product was 605.33 mGy-cm. COMPARISON: Head CT 10/15/2022 FINDINGS: There is no intracranial hemorrhage, acute infarction, or abnormal intracranial mass lesion . The ventricles are normal in size. The orbits are normal. There is mild mucosal thickening in the p aranasal sinuses. The mastoid air cells are normal. IMPRESSION: 1. Normal brain. Reviewed, dictated and finalized at location E. IMPRESSION: 1. Normal brain.
--- NOTE | ~2023-09-25 | XR_ITS ---
EXAMINATION: XR knee RT 3V DATE: 09/25/2023 20:07 INDICATION: Right knee injury. TECHNIQUE: 3 views of right knee were obtained. COMPARISON: None. FINDINGS: Alignment is normal. No fracture. There is severe osteoarthritis of lateral and patellofemo ral compartments and moderate osteoarthritis of medial compartment. There is a large knee joint effus ion. IMPRESSION: 1. Severe right knee osteoarthritis. 2. Large right knee joint effusion. Reviewed, dictated and finalized at location E.
[2023-09-25] MEDS: LIDO 1%/EPINEPHRINE 1:100,000 20 ML VIAL 10 ML INFILTRATE (20:05)
[2023-09-25 20:17] LABS: Basophils Absolute Auto 0.1 K/mm3 (0.0-0.1); Basophils Percent Auto 1.1 % (0.2-1.2); Eosinophils Absolute Auto 0.1 K/mm3 (0-0.3); Eosinophils Percent Auto 2.5 % (0-4.4); Hemoglobin 12.1 g/dL (14.0-18.0); Immature Granulocyte Absolute 0.01 K/mm3 (0.00-0.031); Immature Granulocyte Percent A 0.2 % (0-0.5); Lymphocytes Absolute Auto 1.65 K/mm3 (0.9-3.2); Lymphocytes Percent Auto 37.8 % (18.3-44.2); Mean Corpuscular HGB Conc 32.7 g/dl (32-36); Mean Corpuscular Hemoglobin 30.6 pg (26-34); Mean Corpuscular Volume 93.7 fl (80-100); Mean Platelet Volume 10.3 fl (7.4-10.4); Monocytes Absolute Auto 0.5 K/mm3 (0.1-0.6); Monocytes Percent Auto 10.8 % (2.6-8.5); Neutrophils Absolute Auto 2.1 K/mm3 (1.3-6.7); Neutrophils Percent Auto 47.6 % (45.5-73.1); Platelet Count Result 153 k/mm3 (150-375); Red Blood Count 3.95 M/mm3 (4.6-6.20); Red Cell Distribution Width 15.9 % (11.5-14.5); White Blood Count 4.4 K/mm3 (4.5-10.0)
[2023-09-25 20:22] LABS: Appearance Urine Clear (Clear); Bacteria Urine None Seen /hpf; Bilirubin Urine Negative (Negative); Blood Urine 1+ (Negative); Color Urine Yellow (Yellow); Glucose Urine UA Negative (Negative); Ketones Urine Negative (Negative); Leukocyte Esterase Ur Negative LEU/UL (Negative); Nitrate Urine Negative (Negative); Non Pathogenic Casts 0-2; Protein Urine Negative (Negative); RBC Urine 0-2 /hpf (0-2); Specific Grav Ur 1.003 (1.001-1.035); Squamous Epithelial Cell Urine None Seen /hpf (Few); Urobilinogen Urine 0.2 mg/dL (<2.0); WBC Urine 0-5 /hpf (0-3); pH Urine 5.5 (5.0-9.0)
[2023-09-25 20:24] LABS: Add Urine Microscopic? YES
[2023-09-25] MEDS: SODIUM CHLORIDE 0.9% IV 1,000 ML 999 ML IV CONT ×2 (20:34→21:49)
[2023-09-25 20:37] LABS: Alanine Aminotransferase 12 U/L (6-50); Albumin Level 3.5 g/dL (3.5-5.1); Alkaline Phosphatase 55 U/L (38-126); Anion Gap 10 mmol/L (4-12); Aspartate Amino Transferase 23 U/L (17-59); Bilirubin,Total 0.3 mg/dL (0.2-1.3); Blood Urea Nitrogen 11 mg/dL (9-20); Calcium 8.2 mg/dL (8.4-10.2); Carbon Dioxide 24 mmol/L (22-30); Chloride 110 mmol/L (98-107); Estimated CRCL calculation 81 ml/min; Estimated Glomerular Filt Rate > 60; Glucose 103 mg/dL (65-110); Potassium 3.1 mmol/L (3.4-5.0); Sodium 144 mmol/L (137-145)
--- NOTE | 2023-09-25 20:40 | PC.NURSE ---
patient's BP low, provider aware, new orders received
[2023-09-25 20:43] LABS: Amphetamine Screen Urine Negative (Negative); Barbiturate Screen Urine Negative (Negative); Benzodiazepines Screen Urine Positive (Negative); Cannabinoid Screen Urine Negative (Negative); Cocaine Screen Urine Negative (Negative); Methadone Screen Urine Negative (Negative); Opiate Screen Urine Negative (Negative); Phencyclidine Screen Urine Negative (Negative)
[2023-09-25 20:53] LABS: Influenza A QL RT-PCR Negative (Negative); Influenza B QL RT-PCR Negative (Negative); RSV RNA, RT-PCR Negative (Negative); SARS-CoV-2 RNA PCR Negative (Negative)
--- NOTE | 2023-09-25 21:01 | ED.GENADULT ---
HPI - General Adult General Chief complaint: Psychiatric Symptoms <Art Hay MD - Last Filed: 09/26/23 06:55> Stated complaint: SI <Art Hay MD - Last Filed: 09/26/23 06:55> Time Seen by Provider: 09/25/23 19:04 <Art Hay MD - Last Filed: 09/26/23 06:55> History of Present Illness HPI narrative: Patient is a 63-year-old male who presents ER after attempted suicide. He cut his wrist with a knife. He is intoxicated. He did this after his filed divorce paperwork against him. Patient just got out of a psychiatric hospital in last week and was on a safety plan. Patient has bruising to his head and knees. Reports he fell down some steps last night. Apparently he was standing at the [employer]. <Art Hay MD - Last Filed: 09/26/23 06:55> Related Data Home medications: Home Medications Medication Instructions Recorded Confirmed amlodipine 10 mg-benazepril 20 mg 1 cap PO DAILY 01/29/21 10/16/22 capsule aspirin 81 mg tablet 81 mg PO DAILY 10/16/22 10/16/22 cetirizine 10 mg tablet (Zyrtec) 10 mg PO DAILY 10/16/22 10/16/22 <Art Hay MD - Last Filed: 09/26/23 06:55> Allergies/adverse reactions: Allergies Allergy/AdvReac Type Severity Reaction Status Date / Time No Known Allergies Allergy Verified 08/03/23 15:48 <Art Hay MD - Last Filed: 09/26/23 06:55> Review of Systems Review of Systems: All systems reviewed & are unremarkable except as noted in HPI and below <Art Hay MD - Last Filed: 09/26/23 06:55> Constitutional: Constitutional: Reports no additional constitutional complaints <Art Hay MD - Last Filed: 09/26/23 06:55> ENT: Reports system reviewed and no additional complaints, except as documented <Art Hay MD - Last Filed: 09/26/23 06:55> Cardiovascular: Cardiovascular: Reports no additional cardiovascular complaints <Art Hay MD - Last Filed: 09/26/23 06:55> Respiratory: Respiratory: Reports no additional respiratory complaints <Art Hay MD - Last Filed: 09/26/23 06:55> Gastrointestinal: Gastrointestinal: Reports no additional gastrointestinal complaints <Art Hay MD - Last Filed: 09/26/23 06:55> Psychiatric: Psychiatric: Denies anxiety, Denies depression and Reports suicidal ideation <Art Hay MD - Last Filed: 09/26/23 06:55> [facility] Past Medical History Medical History: Medical History (Updated 09/26/23 @ 06:36 by Art Hay MD) Alcohol abuse Allergic rhinitis Depression Hypertension <Art Hay MD - Last Filed: 09/26/23 06:55> Surgical History Surgical History: Surgical History (Updated 10/16/22 @ 06:10 by Zara Buitrago DO) History of repair of ACL Right History of toe surgery Joint removal from the left great toe <Art Hay MD - Last Filed: 09/26/23 06:55> Family History Family History: Family History (Updated 10/16/22 @ 06:11 by Zara Buitrago DO) Father Acute myocardial infarction, Onset Age: 55 Mother , Age 70 Emphysema of lung Sibling HIV (human immunodeficiency virus infection) Sibling Emphysema of lung <Art Hay MD - Last Filed: 09/26/23 06:55> Social History Social History: Social History (Updated 10/16/22 @ 06:15 by Zara Buitrago DO) Social History: He has 2 daughters and 1 son. Code status: Full code Surrogate decision maker: Smoking packs per day: 1.5 Smoking cigarettes per day: 30.0 Years smoked: 52 Smoking pack-years: 78.00 Smoking status: Former smoker Alcohol intake: current Alcohol use details: Patient binge drinks. Alcohol level on admission 470 (10/15/2022) Substance use: never Substance use type: other Additional living arrangements comments: He lives with his of 28 years. Additional occupation/education comments: He served in the [employer] for 8 years.
[2023-09-25 21:21] LABS: Ethanol 293 mg/dL (<10)
--- NOTE | 2023-09-25 21:28 | PC.NURSE ---
update given to santana greer [phone]
[2023-09-25] MEDS: SODIUM CHLORIDE 0.9% IV 1,000 ML 125 ML IV CONT (23:23)
[2023-09-26] VITALS (7 sets, daily range): BP systolic 88–131; BP diastolic 56–91; PULSE 70–84; RESP 16–20; TEMP 37.2; O2SAT 95–100
[2023-09-26 02:10] LABS: Ethanol 143 mg/dL (<10)
[2023-09-26 05:00] LABS: Ethanol 85 mg/dL (<10)
--- NOTE | 2023-09-26 11:30 | PC.NURSE ---
Patient's family and patient request to have care with [facility] time[facility] and [facility] needs to be faxed for review.
--- NOTE | 2023-09-26 11:31 | ECG_ITS ---
Test Date: 2023-09-26 11:46:12 Measurements Intervals [place] Rate: 82 P: 28 [place]: 149 QRS: 3 QRSD: 106 T: 16 QT: 390 QTc: 456 Interpretive Statements SINUS RHYTHM CONSIDER INFERIOR INFARCT, AGE INDETERMINATE NONSPECIFIC T-WAVE ABNORMALITY- ANTERIOR LEADS BASELINE ARTIFACT- I, II, III, AVR, AVL, AVF, V1 ABNORMAL ECG No previous ECG available for comparison Electronically Signed On 09-26-2023 12:50:43 CDT by Yadiel Roberts D.O.
--- NOTE | 2023-09-26 12:02 | PC.NURSE ---
information faxed to the [facility] for admission.
--- NOTE | 2023-09-26 17:34 | PCCCNOTE ---
CC received call from the [facility], Erendira, regarding [facility] SI and alcohol use. Pt had been accepted at [facility] in [place], [place]. [facility]. Call placed to the [place] career placement specialist and awaiting for the pt to be accepted. 1500-Pt accepted, transport set up to pick pt up.
== END 2023-09-26 17:26 ==
PROVIDERS: Emergency Medicine; Emergency Provider Emergency Medicine
DX: S61.502A Unspecified open wound of left wrist, initial encounter (principal); F32.A Depression, unspecified; F10.129 Alcohol abuse with intoxication, unspecified; Y90.8 Blood alcohol level of 240 mg/100 ml or more; Z11.52 Encounter for screening for COVID-19; I10 Essential (primary) hypertension; M17.0 Bilateral primary osteoarthritis of knee; R94.31 Abnormal electrocardiogram [ECG] [EKG]; Z79.899 Other long term (current) drug therapy; Z79.82 Long term (current) use of aspirin; X78.1XXA Intentional self-harm by knife, initial encounter
CPT/HCPCS: 12001; 36415; 70450; 73562; 80053; 80307; 81001; 84443; 85025; 87637; 93005; 96360; 96361; 99285; J7030